=== PATIENT | female | born 1975 | race African-American/Black ===

== ENCOUNTER 2024-02-14 09:27 | Day surgery (SDC) | payer OTHER, SELFPAY ==
[2024-02-12 16:05] VITALS: BMI 51.3
[2024-02-12 16:39] VITALS: BMI 51.2
--- NOTE | 2024-02-13 12:29 | P.CONAN_ITS ---
Documented by User: Jennifer Cox NP 02/13/24 12:29 HPI - Anesthesia Eval Consult details Narrative: 48yo F for Colonoscopy Anesthesia Pre-Procedure Meds Is the patient on any of the following meds?: SGLT2 Inhib PMFSH Past Medical History Medical History Anesthesia Diabetes Asthma HTN (hypertension) IBS (irritable bowel syndrome) Surgical History Surgical History History of endometrial ablation (~2012) Hx of reduction mammoplasty (~2005) Hx of colonoscopy Social History Social History (Updated 02/12/24 @ 16:42 by Radha Zapien RN) Household Members Other:: mother Are you a primary healthcare market consultant to a significant other at home: Yes (mother, sister to help) Do you presently have visiting nurse or other home services: No Patient Tobacco Use Status: Never used Tobacco Use of substances other than those prescribed or required for medical reasons: No Have you been hit, kicked, punched, or otherwise hurt by someone within the past year? If so, by whom?: No Advance Directives: No (will bring dos) Advance Directives Information Provided: Yes Advance Directives on File: No Recently lost weight without trying: No Nutrition Risks: No Nutritional Risk Patient : No FDLMP: 02/11/2024 Poor oral hygiene: No Meds Allergies Allergy/AdvReac Type Severity Reaction Status Date / Time acetaminophen [From Tylenol] Allergy Severe Anaphylaxis Verified 02/14/24 10:36 NSAIDS (Non-Steroidal Allergy Severe Anaphylaxis Verified 02/14/24 10:36 Anti-Inflamma Home Medications ?Medication ?Instructions ?Recorded ?Confirmed ?Last Taken ?Type albuterol sulfate 90 mcg/actuation inhalation PRN Shortness Of Breath 02/12/24 02/12/24 Unknown History aerosol inhaler Or Wheezing empagliflozin 25 mg tablet 25 mg PO DAILY 02/12/24 02/14/24 02/11/24 History (Jardiance) epinephrine 0.3 mg/0.3 mL 0.3 mg IM Q4H PRN Allergic Reaction 02/12/24 02/12/24 Unknown History injection, auto-injector (EpiPen) ergocalciferol (vitamin D2) 1,250 1,250 mcg PO QWEEK 02/12/24 02/12/24 02/13/24 History mcg (50,000 unit) capsule insulin glargine 100 unit/mL (3 30 unit subcut DAILY 02/12/24 02/14/24 02/13/24 History mL) subcutaneous pen (Lantus Solostar U-100 Insulin) lisinopril 2.5 mg tablet 2.5 mg PO DAILY 02/12/24 02/12/24 02/13/24 History losartan 25 mg tablet 25 mg PO DAILY 02/12/24 02/12/24 Unknown History montelukast 10 mg tablet 10 mg PO BEDTIME 02/12/24 02/12/24 02/13/24 History rosuvastatin 10 mg tablet 10 mg PO DAILY 02/12/24 02/12/24 02/13/24 History tramadol 50 mg tablet 50 mg PO Q6H PRN headache 02/12/24 02/12/24 Unknown History Exam Height,Weight and Vital Signs: Height 5 ft 2 in Weight 127.006 kg Assessment and Plan Assessment Anesthesia Assessment: Chart Reviewed Documented by User: Ashish Rowland MD 02/14/24 10:53 HPI - Anesthesia Eval Anesthesia Pre-Procedure Meds If yes to any meds - educate patient: Pt education - increased risk of aspiration and/or euvolemic DKA [facility] Past Medical History Medical History Anesthesia Diabetes Asthma HTN (hypertension) IBS (irritable bowel syndrome) Patient : No Family History Family history of problems with anesthesia: No Surgical History Surgical History History of endometrial ablation (~2012) Hx of reduction mammoplasty (~2005) Hx of colonoscopy History of Problems with Anesthesia: No Social History Social History (Updated 02/12/24 @ 16:42 by Radha Zapien RN) Household Members Other:: mother Are you a primary healthcare market consultant to a significant other at home: Yes (mother, sister to help) Do you presently have visiting nurse or other home services: No Patient Tobacco Use Status: Never used Tobacco Use of substances other than those prescribed or required for medical reasons: No Have you been hit, kicked, punched, or otherwise hurt by someone within the past year? If so, by whom?: No Advance Directives: No (will bring dos) Advance Directives Information Provided: Yes Advance Directives on File: No Recently lost weight without trying: No Nutrition Risks: No Nutritional Risk Patient : No FDLMP: 02/11/2024 Poor oral hygiene: No Meds Allergies Allergy/AdvReac Type Severity Reaction Status Date / Time acetaminophen [From Tylenol] Allergy Severe Anaphylaxis Verified 02/14/24 10:36 NSAIDS (Non-Steroidal Allergy Severe Anaphylaxis Verified 02/14/24 10:36 Anti-Inflamma Home Medications ?Medication ?Instructions ?Recorded ?Confirmed ?Last Taken ?Type albuterol sulfate 90 mcg/actuation inhalation PRN Shortness Of Breath 02/12/24 02/12/24 Unknown History aerosol inhaler Or Wheezing empagliflozin 25 mg tablet 25 mg PO DAILY 02/12/24 02/14/24 02/11/24 History (Jardiance) epinephrine 0.3 mg/0.3 mL 0.3 mg IM Q4H PRN Allergic Reaction 02/12/24 02/12/24 Unknown History injection, auto-injector (EpiPen) ergocalciferol (vitamin D2) 1,250 1,250 mcg PO QWEEK 02/12/24 02/12/24 02/13/24 History mcg (50,000 unit) capsule insulin glargine 100 unit/mL (3 30 unit subcut DAILY 02/12/24 02/14/24 02/13/24 History mL) subcutaneous pen (Lantus Solostar U-100 Insulin) lisinopril 2.5 mg tablet 2.5 mg PO DAILY 02/12/24 02/12/24 02/13/24 History losartan 25 mg tablet 25 mg PO DAILY 02/12/24 02/12/24 Unknown History montelukast 10 mg tablet 10 mg PO BEDTIME 02/12/24 02/12/24 02/13/24 History rosuvastatin 10 mg tablet 10 mg PO DAILY 02/12/24 02/12/24 02/13/24 History tramadol 50 mg tablet 50 mg PO Q6H PRN headache 02/12/24 02/12/24 Unknown History Exam Airway Mallampati Class: II TM Dist: <=3cm Neck ROM: Full Loose/Missing/Broken Teeth: No Heart: ok Lungs: ok Assessment and Plan Assessment Anesthesia Assessment: Anesthesia Plan Discussed Final Anesthetic Review Family History of Problems with Anesthesia: No History of Problems with Anesthesia: No NPO: Yes ASA Class: III Final Preanesthetic Review: No Changes in Pt Med Stat, Meds/Allgs Chart Reviewed, Consent Obtained/Reviewed and Anes Risks/Benef Reviewed Patient Risk: Intermediate Procedure Risk: Low Anesthetic Plan Anesthetic Plan: MAC: and Agree w/ Assess. and Plan Disposition: Standard PACU
[2024-02-14 10:19] LABS: UPreg QC Valid YES; Urine Pregnancy NEGATIVE (NEGATIVE)
[2024-02-14 10:33] VITALS: BP 141/5; PULSE 82; RESP 16; TEMP 36.5; O2SAT 94
[2024-02-14] MEDS: Lactated Ringers 1,000 ML 100 ML IVCONT (10:35)
--- NOTE | 2024-02-14 10:35 | MHC.SHP ---
Pre-Procedural Eval Section A - 24 Hr Update-Section A only Date of Service: 02/14/24 Section B - Complete if H&P > 30 days Chief Complaint: hx malignant neoplasm,screening Details of Present Illness: see H&P no changes Relevant Family History (Specify if Yes): Yes Relevant Social History: None Present Medications: see Short Stay Collaborative assessment Medical History: No relevant PMH Allergies: Allergies Allergy/AdvReac Type Severity Reaction Status Date / Time acetaminophen [From Tylenol] Allergy Severe Anaphylaxis Verified 02/12/24 16:37 NSAIDS (Non-Steroidal Allergy Severe Anaphylaxis Verified 02/12/24 16:37 Anti-Inflamma Review of Systems Sugical H&P ROS: Negative: Constitution, Cardiovascular, Respiratory, Neurological, Psychiatric, Hem-Onc, Allergic/Immunologic, Gastrointestinal, Genitourinary, Musculoskeletal, Integumentary, Endocrine and Eyes/Ears/Nose/Throat Exam Surgical H&P Exam: Normal: HEENT, Normal: Heart, Normal: Lungs, Normal: Extremities, Normal: Abdomen, Normal: Skin and Normal: Neurological Plan Diagnosis/Plan: Unchanged I have reviewed the history and physical and performed a pertinent physical examination on my patient. No changes have occurred unless specified. Time Spent With Patient Time: Total time managing care of this patient today ____ minutes.
[2024-02-14 10:38] LABS: Glucose, Whole Blood 157 mg/dL (60-115)
[2024-02-14 11:11] VITALS: BP 129/76; PULSE 80; RESP 20; TEMP 36.3; O2SAT 96
--- NOTE | 2024-02-14 11:18 | P.BOP_ITS ---
Brief Operative Note Date of Service: 02/14/24 Pre-op diagnosis: screening Post-op diagnosis: same Procedure: colonoscopy Surgeon: Cb Claudio MD Was an Director Of Annual Giving used for this Procedure?: No Estimated blood loss (mL): 0 Pathology: none sent Condition: stable Disposition: PACU
[2024-02-14 11:24] VITALS: BP 119/60; PULSE 77; RESP 18; TEMP 36.2; O2SAT 97
--- NOTE | 2024-02-14 11:38 | OP_ITS ---
DATE OF SERVICE: 02/14/2024 SURGEON: Cb Claudio MD INDICATIONS: Colon cancer screening and family history of colon cancer. PREOPERATIVE DIAGNOSIS: POSTOPERATIVE DIAGNOSIS: PROCEDURE PERFORMED: Colonoscopy to the terminal ileum ESTIMATED BLOOD LOSS: COMPLICATIONS: ANESTHESIA: ASSISTANTS: SPECIMENS: MEDICATIONS: Monitored anesthesia care. DESCRIPTION OF PROCEDURE: A history and physical was performed. The risks and benefits of the procedure were explained to the patient. Informed consent was obtained. The patient was placed in the left lateral decubitus position. A digital rectal exam was performed and was found to be normal. The Olympus pediatric video colonoscope was introduced into the rectum and advanced to the cecum. The cecum was identified by transillumination, palpation, and identification of ileocecal valve. Examination was performed. The scope was removed. She tolerated the procedure well and was returned to recovery in stable condition. FINDINGS: The terminal ileum was examined and appeared normal. The visualized colonic mucosa was within normal limits without evidence of masses or ulcers. No polyps were identified. There was some stool coating the mucosa throughout the colon which was washed and suctioned. There was mild sigmoid diverticulosis. Retroflexed examination showed no abnormalities. IMPRESSION: Normal colonoscopy. RECOMMENDATION: 1. Follow up as needed. 2. Repeat colonoscopy is recommended in 5 years for family history of colon cancer. MD MAXIMO Qureshi/LEONARD / [id number]
== END 2024-02-14 11:46 | disposition home or self-care (01) ==
PROVIDERS: Anesthesiology; PCP Physician Assistant; Visit Provider Internal Medicine Gastroenterology
PROC: 0DJD8ZZ Inspection of Lower Intestinal Tract, Via Natural or Artificial Opening Endoscopic (ICD-10-PCS; CPT 45378; principal; 2024-02-14 11:40)
DX: Z12.11 Encounter for screening for malignant neoplasm of colon (principal); Z80.0 Family history of malignant neoplasm of digestive organs; K57.30 Diverticulosis of large intestine without perforation or abscess without bleeding; K58.9 Irritable bowel syndrome, unspecified; K56.2 Volvulus; I10 Essential (primary) hypertension; E11.9 Type 2 diabetes mellitus without complications; J45.909 Unspecified asthma, uncomplicated; Z79.4 Long term (current) use of insulin; Z79.84 Long term (current) use of oral hypoglycemic drugs; Z79.899 Other long term (current) drug therapy; Z88.6 Allergy status to analgesic agent; Z88.8 Allergy status to other drugs, medicaments and biological substances; Z98.890 Other specified postprocedural states
CPT/HCPCS: 45378; 81025; 82947; J2704